=== PATIENT | male | born 1970 | race African-American/Black ===

== ENCOUNTER 2020-08-09 19:39 | Emergency (ER) | payer OTHER ==
[~2020-08-09] VITALS: Ht 180.3 cm; Wt 109.5 kg
[2020-08-09 20:07] VITALS: Ht 180.3 cm; Wt 109.5 kg
[2020-08-09 20:43] VITALS: BP 143/95
== END 2020-08-09 20:43 | disposition home or self-care (01) ==
LOC: ED 19:39
DX: T24.001A Burn of unspecified degree of unspecified site of right lower limb, except ankle and foot, initial encounter (principal); L03.115 Cellulitis of right lower limb; I10 Essential (primary) hypertension; X17.XXXA Contact with hot engines, machinery and tools, initial encounter; Y93.89 Activity, other specified; Y92.89 Other specified places as the place of occurrence of the external cause; Y99.8 Other external cause status

== ENCOUNTER 2020-08-25 20:49 | Emergency (ER) | payer OTHER ==
[~2020-08-25] VITALS: Ht 180.3 cm; Wt 110.7 kg
[2020-08-25 20:56] VITALS: Ht 180.3 cm; Wt 110.7 kg
[2020-08-25 22:13] VITALS: BP 141/90
== END 2020-08-25 22:13 | disposition home or self-care (01) ==
LOC: ED 20:49
DX: T25.211D Burn of second degree of right ankle, subsequent encounter (principal); I10 Essential (primary) hypertension; X19.XXXD Contact with other heat and hot substances, subsequent encounter
CPT/HCPCS: 90715